=== PATIENT | female | born 1930 | race Caucasian/White ===

== ENCOUNTER 2017-04-19 17:29 | Inpatient (IN) | payer OTHER ==
[~2017-04-19] VITALS: Ht 162.6 cm; Wt 37.3 kg
--- NOTE | ~2017-04-19 | HP ---
Unit #: [id number] #: [id number] Patient: RODDY DAVIS [id number] [id number] [facility]. [place], [place] [address] [id number] I MR#: [id number] NAME: RODDY DAVIS ROOM: [facility] Age: 86 Sex: F Admission Date: 04/19/2017 : 1930 Attending Physician: Mandy Adler M.D. HISTORY AND PHYSICAL CHIEF COMPLAINT Hip fracture. HISTORY This pleasant 86-year-old female with O2 dependent COPD, CAD, arrhythmia, hypertension, was transferred from [facility] emergency department for right hip fracture. Patient is status post right total hip replacement. She fell today, landed on her right hip and was taken to [facility] emergency department. X-rays demonstrate a minimally displaced right greater and possibly lesser trochanteric periprosthetic fracture. However, no loosening of the femoral component. A call was made to [facility] who asked that patient be sent to [facility]. I am not sure that the patient will require surgery at this point given that she has a right total hip in place and there is no loosening of the femoral component. She, herself, is not complaining of pain after receiving morphine prior to transfer. PAST MEDICAL HISTORY 1. Hypertension. 2. DJD. 3. COPD on 2 L of oxygen. 4. Hypothyroidism. 5. CAD, status post PCI and stent. 6. Arrhythmia. 7. Anxiety. 8. Appendectomy. 9. Cholecystectomy. 10. Hysterectomy. ALLERGIES To Celebrex, Levaquin and Vioxx. HOME MEDICATIONS 1. Nitroglycerin p.r.n. 2. Spiriva, one puff daily. 3. Xanax 0.25 mg t.i.d. p.r.n. 4. Norvasc 10 mg daily. 5. Amiodarone 200 mg daily, possibly iron. 6. Zestoretic 12.5/10 daily. 7. Imdur 30 mg daily. 8. Synthroid 0.05 mg daily. 9. Carafate 1 g daily. Unit #: [id number] #: [id number] Patient: RODDY DAVIS Will verify with patient's pharmacy. FAMILY HISTORY Noncontributory given patient's age. SOCIAL HISTORY The patient lives with her son or grandson. She stopped smoking many years ago, does not drink alcohol. REVIEW OF SYSTEMS Difficult to obtain as patient is pleasantly confused after receiving morphine. She is a poor historian. PHYSICAL GENERAL: Pleasant, thin, 86-year-old female, currently in no acute distress. VITAL SIGNS: Vital signs prior to transfer - temperature 99.1, pulse 80, respirations 18, blood pressure 180/80. O2 saturation 96% on 2 L of oxygen. HEENT EXAMINATION: Eyes PERRLA. Extraocular muscles are intact. Pharynx benign with poor dentition. Dry mucosal membranes. NECK: Supple without adenopathy or thyromegaly. CHEST: Clear on patient supine exam. CARDIAC: Normal S1 and S2 with a systolic murmur best heard at the right upper sternal border and at the apex. ABDOMEN: Bowel sounds are present. Bruit is noted in the abdomen. Nontender. No hepatosplenomegaly or masses. EXTREMITIES: Without C, C or E. Pedal pulses are present. NEUROLOGIC EXAM: Patient is awake, alert. She seems fairly oriented but still a bit confused. She is able to move all of her extremities. DIAGNOSTIC STUDIES LABORATORY: Labs prior to transfer - hematocrit 32.8, normal white count and platelet count. SMA-12 - BUN 22. IMAGING: X-ray - minimally displaced right hip fracture of the greater trochanter and possibly lesser trochanter periprosthetic fracture. No loosening of the femoral component. Head CT - no acute disease. ASSESSMENT 1. Fall with periprosthetic right hip fracture and fracture of the right greater trochanter. A femoral component is in place. I doubt that the patient will require surgery, but orthopedic surgeon will be seeing in the morning. 2. CAD, status post PCI and stent with history of arrhythmia and amiodarone. 3. O2 dependent COPD. 4. Essential hypertension. 5. Hypothyroidism. 6. DJD. 7. Anxiety. PLANS Unit #: [id number] #: [id number] Patient: RODDY DAVIS 1. IV fluids and supportive treatment. 2. Obtain EKG and urinalysis. 3. Old records from [facility]. 4. Orthopedic surgeon to consult in the morning. 5. NPO past midnight until seen by orthopedic surgeon. 6. If surgery is necessary, may need cardiology to clear as well. 7. manager mining to see. 8. DVT prophylaxis. Dictated by aL Carlton/df TD: 04/20/2017 06:58 JOB #: [id number] HISTORY AND PHYSICAL Page 1 of 1 X Marbella Perera MD X HISTORY AND PHYSICAL
--- NOTE | ~2017-04-19 | TOC ---
Unit #: [id number] #: [id number] Patient: RODDY SANTOS [id number] [address] [place], [place] [address] [id number] I MR#: [id number] NAME: RODDY SANTOS ROOM: 475 Age: 86 Sex: F Admission Date: 04/19/2017 : 1930 Attending Physician: Kemal Mathur M.D. Primary Care Physician: Kiran Espinoza M.D. TRANSFER OF CARE SUMMARY PRINCIPAL DIAGNOSES 1. Right periprosthetic hip fracture, nonoperative. 2. Acute hypoactive delirium, likely medication induced. 3. Chronic hypoxic respiratory failure, maintained on three liters of oxygen per cannula at baseline. 4. Severe chronic obstructive pulmonary disease. 5. Coronary artery disease. 6. Hypertension. 7. Osteoporosis. 8. Iron deficiency anemia. 9. Severe protein malnutrition. 10. Severely underweight. 11. Osteoarthritis. 12. Hypothyroidism. 13. Anxiety. 14. History of arrhythmia. CONSULTANTS Dr. Edmondson, Orthopedics. PROCEDURES Right hip x-ray at outlying facility revealing minimally displaced right hip fracture of the greater trochanter and possibly lesser trochanter with no loosening of the femoral component. CLINICAL HISTORY AND HOSPITAL COURSE Ms. Santos is an 86-year-old female with a history of severe COPD with associated respiratory failure and prior hip fracture who presented to the emergency department with right hip pain after a fall at home. Please refer to H and P for further details. X-rays revealed a right greater and possibly lesser trochanteric periprosthetic fracture. However, there was no loosening of the femoral component. Patient was transferred here for further evaluation for surgical intervention. Dr. Edmondson was consulted but did not feel surgical intervention was necessary at this time particularly given patient's significant comorbidities. Her pain is currently controlled, and the plan is for her to discharge to rehab. She does have significant underlying osteoporosis, and I have placed her on calcium with vitamin D as well. In approximately eight weeks, she would benefit from addition of bisphosphonate therapy. Patient also has significant underlying COPD with respiratory failure, but this has remained at baseline throughout hospitalization. Unit #: [id number] #: [id number] Patient: RODDY SANTOS Patient has also had some intermittent mild confusion without agitation that I suspect is pain medication induced. I cannot rule out any underlying short-term memory loss, and this can be followed up on an outpatient basis. Patient was also found to be mildly anemic and had significant iron deficiency. I am going to place her on Venofer during hospitalization, and she would benefit from oral iron supplement on an outpatient basis. Other chronic conditions remained stable. She will be discharged to rehab when a bed is available. Further hospital course to be dictated as an addendum. Dictated by... Dinah Blank M.D. LILLIAN/eldon TD: 04/23/2017 16:25 JOB #: [id number] TRANSFER OF CARE SUMMARY Page 1 of 1 X Dinah Blank MD X TRANSFER OF CARE SUMMARY
--- NOTE | ~2017-04-19 | US140 ---
[facility] A Service of [facility] RADIOLOGY TEXT RESULTS PATIENT: RODDY DAVIS LOCATION: [facility] 475-01 : [birth year] UNIT #: [id number] AGE: [address]: Kemal Mathur MD SEX: F ORDER DR: [id number] [facility] [address] [place], [place] [address] [id number] I MR#: [id number] Acc #: [id number] NAME: RODDY DAVIS : 1930 SEX: F STUDY DATE/TIME: 04/24/2017 14:57 UNIT: [facility] ROOM: [facility] STUDY DESCRIPTION: US UE Veins Unilat or Ltd Stdy Attending Physician: Kemal Mathur M.D. Ordering Physician: Kemal Mathur M.D. MEDICAL IMAGING REPORT This report is preliminary unless electronic signature is present EXAM Left upper extremity venous duplex, 04/24/2017. HISTORY Left upper extremity edema in forearm region for 2 days. No known injury. Evaluate for deep vein thrombosis. FINDINGS Dubose-scale images of the left upper extremity were obtained as well as Doppler waveform spectral analysis and color flow Doppler imaging. There is normal blood flow and compressibility in the left internal jugular vein as well as the left subclavian, axillary, brachial, cephalic and basilic veins. There is no evidence of deep vein thrombosis in the left upper extremity. IMPRESSION Negative left upper extremity venous duplex with no evidence of deep vein thrombosis. Dictated by... Kareem Hill M.D. THIS IS AN ELECTRONICALLY VERIFIED REPORT Kareem Hill M.D. at 04/25/2017 7:25 AM JEFRY/selma TD: 04/25/2017 04:12 JOB #: [id number] MEDICAL IMAGING REPORT Page 1 of 1 COPY
--- NOTE | ~2017-04-19 | EKG ---
PATIENT: RODDY DAVIS UNIT #: [id number] Ventricular Rate: 59 BPM Atrial Rate: 59 BPM P-R Interval: 154 ms QRS Duration: 88 ms Q-T Interval: 474 ms QTC Calculation(Bezet): 469 ms P [place]: 82 degrees Calculated R [place]: 78 degrees Calculated T [place]: 83 degrees Diagnosis Line: Sinus bradycardia Diagnosis Line: Minimal voltage criteria for LVH, may be normal Diagnosis Line: variant Diagnosis Line: Borderline ECG Diagnosis Line: No previous ECGs available Diagnosis Line: Confirmed by MAGALY CORONA MD ([id number]) on Diagnosis Line: 04/20/2017 4:46:16 PM INTERPRETING MD: TALIB
--- NOTE | ~2017-04-19 | A ---
[facility] Nutrition Therapy DATE: 04/20/17 Patient: RODDY DAVIS Physician: HUMERA Address: [address] [place] [address] CIR Room/Bed: [address] [place] [address], Zip: [place] [address] Admit Date: 04/19/17 Date of : [birth year] Height: 5 4 Weight: 82 37.3 NUTRITIONAL ASSESSMENT: REASON: LOW BMI PT IS 86 Y.O. FEMALE ADMITTED FOR (R) HIP FRACTURE S/P FALL PMH: COPD, CAD, HTN, RESP FAILURE, DJD, HYPOTHYROIDISM, ANXIETY, APPY, CHOLY Anthropometrics: 5'4", WT: 82# (87 KG), BMI: 14.1, 68%IBW Labs: NO CURRENT LABS Meds: OS-NURYS 500+D, SYNTHROID (PO), LAXATIVE, ZOFRAN I/O & Bowel function: 520/175 Skin Integrity: DRY SKIN NOTED ALL OVER BODY Estimated Nutrition Needs: INCREASED NUTRIENT NEEDS 2' PT UNDERWEIGHT, ?WEIGHT LOSS NOTED, DECREASED PO INTAKE Assessment: CHART REVIEWED AND EVENTS NOTED. PT SEEN FOR UNDERWEIGHT STATUS. PT PLEASANTLY CONFUSED, POOR HISTORIAN. PT REPORTS A ~13# WEIGHT LOSS BUT UNABLE TO KNOW TIME FRAME, ADDS "IT HAS BEEN QUITE AWHILE". WHEN ASKED ABOUT PT'S PO INTAKE AND APPETITE, PT RESPONDED, "I DO OK". PT IS S/P (R) HIP REPLACEMENT, FELL AT HOME. OF NOTE, PT HAS ONLY BOTTOM TEETH. THIS RD ENCOURAGED SMALL FREQUENT MEALS + SUPPLEMENT INTAKE, PT AGREED TO ENSURE PUDDING, RD TO ORDER. PT NOT APPROPRIATE FOR DIET EDUCATION, RD TO FOLLOW. SEE RECOMMENDATIONS BELOW. Dx: UNDERWEIGHT R/T ADVANCED AGE, PMH, DECREASED PO INTAKE AEB LOW BMI OF 14.1, 68%IBW, WEIGHT LOSS NOTED. Intervention: 1. REGULAR DIET 2. ENSURE PUDDING BID Monitoring, Evaluation and Goals: 1. ORAL INTAKE; CONSUME/TOLERATE >50% OF MEALS AND SUPPLEMENTS 2. WEIGHTS; PROMOTE GRADUAL WEIGHT GAIN TOWARDS HEALTHY BMI; PREVENT WEIGHT LOSS MONITOR: -PO INTAKE/APPETITE -WEIGHTS -SUPPLEMENT INTAKE [facility] Nutrition Therapy DATE: 04/20/17 Patient: RODDY DAVIS Physician: HUMERA Address: [address] [place] [address] CIR Room/Bed: [address] [place] [address], Zip: [place] [address] Admit Date: 04/19/17 Date of : [birth year] Height: 5 4 Weight: 82 37.3 Recommendations: 1. PLEASE OBTAIN CURRENT/UPDATED LABS 2. CONTINUE CURRENT DIET ORDER (REGULAR) TO ALLOW MORE FOOD CHOICES 3. ADD 6 SMALL MEALS TO DIET ORDER TO BETTER FACILITATE PO INTAKE 4. ORDER ANDREEA ENSURE PUDDING BID W/MEALS FOR SUPPLEMENTAL NUTRITION 5. APPRECIATE FAMILY AND STAFF TO ASSIST W/PO INTAKE AND ORDERING MEALS. OF NOTE, PT HAS ONLY BOTTOM TEETH, PT WOULD BENEFIT FROM SOFT FOODS RD WILL F/U PER PROTOCOL PT IS MODERATELY COMPROMISED Respectfully, BHARATI HENSLEY MS, RD, LD Food and Nutritional Services [facility] cc: client file
--- NOTE | ~2017-04-19 | DS ---
Unit #: [id number] #: [id number] Patient: RODDY DAVIS [id number] [address] [place], [place] [address] [id number] I MR#: [id number] NAME: RODDY DAVIS ROOM: [facility] Age: 86 Sex: F Admission Date: 04/19/2017 : 1930 Discharge Date: 04/25/2017 Attending Physician: Kemal Mathur M.D. DISCHARGE SUMMARY ADDENDUM TO TRANSFER OR CARE SUMMARY Please see report dictated by Dr. Blank on 04/22/2017 for principal diagnoses and secondary diagnoses as well as procedures, consultants and hospital course. ADDITIONAL HOSPITAL COURSE The patient continues to be frail and appear chronically ill with severe protein malnutrition and advanced age. Otherwise her hospital course has been fairly unremarkable. She did develop some left arm swelling with tenderness that was concerning for the possibility of a DVT, so she was held in the hospital in order to have an ultrasound of the veins of the left upper extremity. However, no deep venous thrombosis was found on this. The swelling was improving the following day and the patient's pain was improved and functional abilities in that arm were improved. As such, she is felt to be stable for discharge to subacute rehab. The patient continues to have some episodes of mild confusion associated with pain medications. Her pain medications should be minimized as possible. However, at this time she may need some continuing p.r.n. opiates despite the side effects of confusion. These should be weaned off a aggressively as the patient will tolerate. DISCHARGE STATUS Stable. DISCHARGE DISPOSITION Subacute rehab. FOLLOWUP Follow up with Dr. Sergio Edmondson in four to five weeks. DISCHARGE ACTIVITY Weightbearing as tolerated. She should ambulate with assistance only at this time. DIET Regular. No restrictions. DISCHARGE MEDICATIONS 1. Amiodarone 200 mg p.o. daily. 2. Spiriva 1 inhalation daily. 3. Xanax 0.25 mg p.o. at nighttime p.r.n. 4. Amlodipine 10 mg p.o. daily. Unit #: [id number] #: [id number] Patient: RODDY DAVIS 5. Hydrochlorothiazide 12.5 mg p.o. daily. 6. Carafate 1 g p.o. q.i.d. 7. Roxicodone 5 mg p.o. q.4 h. p.r.n. moderate or severe pain. 8. Os-Calixto 500 plus vitamin D 500 mg p.o. b.i.d. 9. Xopenex 1.25 mg nebulized t.i.d. 10. Synthroid 50 mcg p.o. daily. 11. Isosorbide mononitrate ER 30 mg p.o. q.a.m. 12. Nitroglycerin 0.4 mg sublingual q.5 minutes p.r.n. chest pain. Maximum of 3 doses. 13. Folic acid 1 mg p.o. daily. Dictated by... Kemal Mathur M.D. MERRY/clemencia TD: 04/25/2017 11:06 JOB #: [id number] DISCHARGE SUMMARY Page 1 of 1 X Kemal Mathur MD X DISCHARGE SUMMARY
--- NOTE | ~2017-04-19 | CO ---
Unit #: [id number] #: [id number] Patient: RODDY DAVIS [id number] [facility] [address] [facility]. [place], [place] [address] [id number] I MR#: [id number] NAME: RODDY DAVIS ROOM: [facility] Age: 86 Sex: F Admission Date: 04/19/2017 : 1930 Attending Physician: Dinah Blank M.D. Consultation Date: 04/20/2017 CONSULTATION REPORT SERVICE Orthopedic Surgery. CHIEF COMPLAINT Right hip pain. CONSULTING SERVICE Hospitalist. HISTORY OF PRESENT ILLNESS The patient is an 86-year-old female, who states that she tripped and fell in her kitchen yesterday and lands on her right hip. She was taken to [facility] Emergency Department, where she was found to have a minimally displaced periprosthetic hip fracture and after a call made to [facility], was requested the patient to be sent to [facility]. The patient was admitted by the Hospitalist Service, and consult was requested for Orthopedic Surgery. The patient states that she does have pain in her right hip but after some pain medicine, states the pain has subsided substantially. She current feels as though she would not be able to ambulate. She states that she lives with her son and grandson, however, she was adamant that it is her place and she pays the rent. She notes that she used a walker for ambulation prior to this as she does have history of prior hip fracture. PAST MEDICAL HISTORY Significant for hypertension; COPD, on 2 L of oxygen; hypothyroidism; CAD, status post PCI and stent; arrhythmia; anxiety. PAST SURGICAL HISTORY Significant for right hip hemiarthroplasty for fracture, cholecystectomy, appendectomy, hysterectomy, PCI and stent. ALLERGIES Include Celebrex, Levaquin, and Vioxx. MEDICATIONS Please see MAR for complete list, but they include nitroglycerin, Spiriva, Xanax, Norvasc, amiodarone, Zestoretic, Imdur, Synthroid, Carafate. FAMILY HISTORY Noncontributory. SOCIAL HISTORY Unit #: [id number] #: [id number] Patient: RODDY DAVIS The patient is a former smoker many years ago, she does not drink alcohol, and lives with her son and grandson. REVIEW OF SYSTEMS Currently significant only for right hip pain. She is a poor historian and difficult to understand, and is somewhat confused. PHYSICAL EXAMINATION GENERAL: This is a frail appearing, very thin, 86-year-old female, who is in no distress. The patient is alert and oriented x3; however, she is still somewhat confused when talking. HEENT: Atraumatic, normocephalic. Eyes, PERRLA. CHEST: Easy work of breathing. CARDIAC: Currently, regular rate and rhythm. ABDOMEN: Nontender, nondistended. MUSCULOSKELETAL: Right lower extremity does demonstrate pain with any movement of the right hip including flexion, internal or external rotation. There is some tenderness to palpation over the greater trochanter. The patient is otherwise neurovascularly intact distally and is able to plantarflex and dorsiflex her ankle without difficulty. She states that she has normal sensation in all distributions in the right lower extremity. DIAGNOSTIC STUDIES IMAGING RESULTS: AP and lateral of the right hip demonstrates a cemented hemiarthroplasty endoprosthesis that appears to be a bipolar implant. There is what appears to be peritrochanteric fracture with displacement of the greater trochanter; however, there does not appear to be involvement of the cement mantle. This is a fully cemented stem and the stem does appear to be stable and there is no evidence of loosening or subsidence at the calcar. ASSESSMENT This is an 86-year-old female with multiple medical comorbidities and a periprosthetic right hip fracture. PLAN Given the patient's age and what appears to be a stable periprosthetic fracture and a long cemented stem, at this point, it likely would not be beneficial for the patient to undergo surgery. The stem is likely still well fixed and trying to remove it and revise it would likely do significant damage to her very osteoporotic bone. Additionally, the patient is not an ideal candidate for surgery and the surgery itself possess significant risk for the patient. Given that the stem is cemented and appears to still be well fixed, the best plan at this point would be to allow the patient weightbear as tolerated using a walker and provide adequate pain control while trying to minimize narcotics. As there is no plans for surgery at this point, the patient may resume a regular diet and may be weightbearing as tolerated on the right with a walker. We will follow closely and can get repeat radiographs to ensure that this stem is not subsiding or showing any evidence of loosening. It is possible that the greater trochanter fragment may displace further; however, this should not have any significant detrimental functional outcomes. We recommend that the patient go to a rehab facility until she is able to better ambulate and her pain in well controlled. Thank you for this consult. We can see the patient back in the office in 4 to 6 weeks or on an as needed basis if there are problems sooner. Unit #: [id number] #: [id number] Patient: RODDY DAVIS Dictated by... La Ji/lilian TD: 04/21/2017 16:59 JOB #: [id number] CONSULTATION REPORT Page 1 of 1 X X CONSULTATION REPORT
[2017-04-19] MEDS ORDERED: NITROSTAT0.4 MG SL (23:50)
[2017-04-19] MEDS ORDERED: SPIRIVA18 MCG INH (23:50)
[2017-04-19] MEDS ORDERED: XANAX XR0.5 MG PO (23:52)
[2017-04-19] MEDS ORDERED: AMLODIPINE BESY10 MG PO (23:53)
[2017-04-19] MEDS ORDERED: AMIODARONE HCL200 MG PO (23:54)
[2017-04-19] MEDS ORDERED: HYDROCHLOROTH12.5 MG PO (23:55)
[2017-04-19] MEDS ORDERED: ISOSORBIDE MONO30 M1 PO (23:57)
[2017-04-19] MEDS ORDERED: SYNTHROID0.05 MG PO (23:58)
[2017-04-19] MEDS ORDERED: CARAFATE1 GM PO (23:59)
[2017-04-20 02:30] LABS: URINE APPEARANCE CLEAR; URINE BLOOD TRACE (NEG); URINE COLOR DK YELLOW; URINE GLUCOSE NEG (NEG); URINE KETONE NEG (NEG); URINE LEUKOCYTE ESTERASE 1+ (NEG); URINE NITRATE NEG (NEG); URINE PROTEIN NEG (NEG); URINE SPECIFIC GRAVITY 1.019 (1.003-1.035)
[2017-04-20 02:34] LABS: CULTURE INDICATED? YES; URINE BACTERIA AUWI NEG (NEGATIVE); URINE SQUAMOUS EPITHELIAL CELL OCC /[HPF]
[2017-04-20 02:37] LABS: URINE BILIRUBIN NEG (NEG)
[2017-04-21 04:12] LABS: HEMATOCRIT 26.6 % (35.0-45.0); HEMOGLOBIN 8.9 gm/dL (12.0-16.0); MEAN CELL VOLUME 84.6 FL (83-96); MEAN CORPUSCULAR HEMOGLOBIN 28.2 PG (28-34); MEAN CORPUSCULAR HGB CONC 33.4 g/dL (30-36); MEAN PLATELET VOLUME 8.6 FL (6.5-11.5); RED BLOOD COUNT 3.14 X10e (3.90-5.30); RED CELL DISTRIBUTION WIDTH 16.3 % (11.0-15.5); WHITE BLOOD COUNT 5.2 X10e3 (4.0-10.5)
[2017-04-21 04:42] LABS: BUN/CREATININE RATIO 31.42; CALCIUM SERUM 8.3 mg/dL (8.4-10.2); CREATININE SERUM 0.7 mg/dL (0.6-1.4); GLOM FILT RATE Estimated 77.4 mL/min (>60); POTASSIUM 3.8 mmol/L (3.5-5.1)
[2017-04-21 13:51] LABS: IRON SERUM <5 ug/dL (28-170); PREALBUMIN 8.9 mg/dL (17.0-42.0); TOTAL IRON BINDING CAPACITY 255 ug/dL (269-535); TRANSFERRIN 182 mg/dL (192-382); TRANSFERRIN SATURATION 2 % (20-50)
[2017-04-23 07:28] LABS: BASOPHIL% 0.1 % (0-2.5); EOSINOPHIL# 0.2 X10e3 (0-0.7); EOSINOPHIL% 2.3 % (0.0-7.0); HEMATOCRIT 28.6 % (35.0-45.0); HEMOGLOBIN 9.5 gm/dL (12.0-16.0); LYMPHOCYTE# 0.4 X10e3 (1.0-3.5); MEAN CELL VOLUME 84.7 FL (83-96); MEAN CORPUSCULAR HEMOGLOBIN 28.1 PG (28-34); MEAN CORPUSCULAR HGB CONC 33.1 g/dL (30-36); MEAN PLATELET VOLUME 8.6 FL (6.5-11.5); MONOCYTE# 0.4 X10e3 (0-1.0); MONOCYTE% 6.1 % (3.0-12.0); NEUTROPHIL% 85.5 % (40-75); PLATELET COUNT 134 X10e3 (140-420); RED BLOOD COUNT 3.38 X10e (3.90-5.30); RED CELL DISTRIBUTION WIDTH 15.8 % (11.0-15.5)
[2017-04-23 07:38] LABS: DIFF IND NO
[2017-04-23 07:55] LABS: CALCIUM SERUM 8.7 mg/dL (8.4-10.2); CREATININE SERUM 0.4 mg/dL (0.6-1.4); POTASSIUM 3.9 mmol/L (3.5-5.1)
[2017-04-25 03:44] LABS: HEMATOCRIT 26.7 % (35.0-45.0); HEMOGLOBIN 8.8 gm/dL (12.0-16.0); MEAN CELL VOLUME 84.7 FL (83-96); MEAN CORPUSCULAR HGB CONC 33.1 g/dL (30-36); MEAN PLATELET VOLUME 7.8 FL (6.5-11.5); RED BLOOD COUNT 3.15 X10e (3.90-5.30); RED CELL DISTRIBUTION WIDTH 15.3 % (11.0-15.5); WHITE BLOOD COUNT 4.6 X10e3 (4.0-10.5)
== END 2017-04-25 18:30 | DRG 535 ==
LOC: UNDOADMIN 17:29 → C4C 17:29
PROVIDERS: Internal Medicine
DX: S72.111A Displaced fracture of greater trochanter of right femur, initial encounter for closed fracture (principal); E43 Unspecified severe protein-calorie malnutrition; Z99.81 Dependence on supplemental oxygen; J44.9 Chronic obstructive pulmonary disease, unspecified; J96.11 Chronic respiratory failure with hypoxia; M97.01XA Periprosthetic fracture around internal prosthetic right hip joint, initial encounter; F19.921 Other psychoactive substance use, unspecified with intoxication with delirium; Z68.1 Body mass index [BMI] 19.9 or less, adult; I25.10 Atherosclerotic heart disease of native coronary artery without angina pectoris; I49.9 Cardiac arrhythmia, unspecified; I10 Essential (primary) hypertension; E03.9 Hypothyroidism, unspecified; M19.90 Unspecified osteoarthritis, unspecified site; F41.9 Anxiety disorder, unspecified; W01.0XXA Fall on same level from slipping, tripping and stumbling without subsequent striking against object, initial encounter; Y92.000 Kitchen of unspecified non-institutional (private) residence as the place of occurrence of the external cause; Z90.49 Acquired absence of other specified parts of digestive tract; Z90.710 Acquired absence of both cervix and uterus; Z96.641 Presence of right artificial hip joint; M81.0 Age-related osteoporosis without current pathological fracture; D50.9 Iron deficiency anemia, unspecified; Z87.891 Personal history of nicotine dependence; Z98.890 Other specified postprocedural states; Z79.899 Other long term (current) drug therapy; Z88.1 Allergy status to other antibiotic agents; Z88.8 Allergy status to other drugs, medicaments and biological substances
CPT/HCPCS: 80048; 81003; 82607; 83540; 83550; 84134; 85025; 85027; 87086; 93005; 93971; 94640; 94760; 97110; 97116; 97162; 97166; 97530; 97535; G8978-GP; G8979-GP; G8980-GP; G8987-GO; G8988-GO; J0696; J1644; J1650; J2270; J2405; J2916